=== PATIENT | male | born 1980 | race Caucasian/White ===

== ENCOUNTER → 2017-09-21 | Day surgery (SDC) | payer MEDICARE ==
[~2017-09-21] VITALS: Ht 177.8 cm; Wt 161.9 kg
[~2017-09-21] MED LIST: ACETAMINOPHEN 1000 MG/100 ML 100 ML IV ONE; BUPIVACAINE/EPINEPHRINE 0.5% PF 30 ML VIAL ONE; CHLORHEXIDINE GLUCONATE 2 % 1 PACK (2 CLOTHS) TOPICAL PRN; DO NOT ADM ANY ANTICOAGULANT DRUGS PRN; ESMOLOL HCL 100 MG/10 ML VIAL IV ONE; GLYCOPYRROLATE 1 MG/5 ML SYRINGE IV PUSH ONE; HALO10TA PO; HALO5TAB PO; HYDR25TA5 PO; KETAMINE HCL 500 MG/10 ML VIAL ONE; LACTATED RINGER'S 1000 ML IV PRN; LIDOCAINE 1%/EPINEPHrine 1:100,000 SOLN 50 ML VIAL ONE; LIDOCAINE HCL 1% PF 5 ML SYRINGE OTHER ONE; METOPROLOL TARTRATE 25 MG TAB PO PRN; MIDAZOLAM HCL 2 MG/2 ML VIAL ONE; POVIDONE IODINE 5% (ANTISEPSIS KIT) 4 APPLICATIONS EACH NARE PRN; PROPOFOL 200 MG/20 ML AMP IV ONE; SERO300T PO; SILVER SULFADIAZINE/LIDOCAINE CREAM 60 GM JAR RECTAL ONE; SODIUM CHLORID 0.9% 500 ML IV PRN; SUCCINYLCHOLINE CHLORIDE 100 MG/5 ML SYRINGE IV PUSH ONE
[2017-09-21 09:38] LABS: AUTOMATED NEUTROPHIL # 4.4 TH/MM3 (1.8-7.7); BASOPHIL # 0.1 TH/MM3 (0-0.2); BASOPHIL % 1.1 % (0.0-2.0); EOSINOPHIL # 0.3 TH/MM3 (0-0.4); EOSINOPHIL % 4.3 % (0.0-4.0); HEMATOCRIT 42.9 % (39.0-51.0); HEMOGLOBIN 14.7 GM/DL (13.0-17.0); LYMPH % 31.2 % (9.0-44.0); LYMPHOCYTE # 2.5 TH/MM3 (1.0-4.8); MEAN CELL VOLUME 86.1 FL (80.0-100.0); MEAN CORPUSCULAR HEMOGLOBIN 29.5 PG (27.0-34.0); MEAN CORPUSCULAR HGB CONC 34.2 % (32.0-36.0); MEAN PLATELET VOLUME 7.3 FL (7.0-11.0); MONOCYTE # 0.6 TH/MM3 (0-0.9); NEUT % 55.4 % (16.0-70.0); PLATELET COUNT 278 TH/MM3 (150-450); RED BLOOD COUNT 4.98 MIL/MM3 (4.50-5.90); RED CELL DISTRIBUTION WIDTH 13.3 % (11.6-17.2); WHITE BLOOD COUNT 7.9 TH/MM3 (4.0-11.0)
--- NOTE | 2017-09-21 10:14 | PD.HP.UP ---
H&P Update Note The Pre-Admit History and Physical Examination regarding the above named patient was reviewed (including, but not limited to, vital signs, heart, lungs, co-morbid conditions), and upon re-examination it is noted that: the patient's condition has not significantly changed since the last examination. Benito Chun MD Sep 21, 2017 10:14
[2017-09-21 13:00] VITALS: BP 176/95; PULSE 104; RESP 20; TEMP 97.6; O2SAT 94
--- NOTE | 2017-10-02 12:47 | MP ---
cc: Benito Chun MD, Andrew H MD DATE OF OPERATION: 09/21/2017 PREOPERATIVE DIAGNOSIS: History of anal condyloma and recurrent anal condyloma. PROCEDURE PERFORMED: Exam under anesthesia with excision and fulguration of multiple anal condylomas. POSTOPERATIVE DIAGNOSIS: History of anal condyloma and recurrent anal condyloma. SURGEON: Dr. Benito Chun. PROCEDURE IN DETAIL: The patient was placed in the left lateral decubitus position. After adequate anesthesia sedation, his buttocks were taped apart, prepped with Betadine solution and draped in the usual sterile fashion. Local anesthesia was obtained by infiltration of 1% Xylocaine/0.5% Marcaine with epinephrine. Examination revealed several lesions around the anal opening consistent with recurrent anal condyloma. These were excised and the base cauterized with electrocautery. Several real small lesions were also just fulgurated with electrocautery. Anal canal was gently dilated and a half alex retractor inserted. No other condylomatous lesions were seen up to and including the dentate line in the rectal vault. Previous scarring from his extensive condylomatous history was seen, but the recurrent disease was fairly moderate. After complete excision, no further gross lesions were seen. The area treated with some cream and a large fluff dressing externally. The patient tolerated the procedure quite well and was brought to the recovery room in stable condition. Sponge and needle counts were correct at the end of the procedure. Benito Chun MD [facility]/ , 09:50 PM , 10:18 PM
== END | disposition home or self-care (01) ==
LOC: HSDC 08:20
PROVIDERS: ATTEND Colon & Rectal Surgery
DX: A63.0 Anogenital (venereal) warts (principal); I10 Essential (primary) hypertension
CPT/HCPCS: 00902; 46922; 85025; 88305; J0131; J0330; J2250; 88304